=== PATIENT | male | born 1995 | race African-American/Black ===

== ENCOUNTER 2016-12-18 08:03 | Emergency (ER) | payer MEDICAID ==
[~2016-12-18] VITALS: Ht 175.3 cm; Wt 75.0 kg
[~2016-12-18 08:03] MED LIST: IRON-1 PO; PROT40 PO
[2016-12-18] MEDS ORDERED: HYDROCODONE/ACETAMINOPHEN 5/325MG TABLET PO ONE (12:15)
[2016-12-18 13:37] VITALS: BP 113/71
== END 2016-12-18 14:22 | disposition home or self-care (01) ==
LOC: ER 08:15
DX: S13.4XXA Sprain of ligaments of cervical spine, initial encounter (principal); V89.2XXA Person injured in unspecified motor-vehicle accident, traffic, initial encounter; Y93.89 Activity, other specified; Y99.8 Other external cause status; Y92.89 Other specified places as the place of occurrence of the external cause
CPT/HCPCS: 72125; 99284